=== PATIENT | male | born 1950 | race Hispanic/Latino ===

== ENCOUNTER 2017-01-17 10:04 | Emergency (ER) | payer MEDICAID ==
[2017-01-17 10:30] VITALS: BP 123/71
[2017-01-17] MEDS ORDERED: XYLOCAINE 1% 20 mL INFILTRATI ONE (12:20)
--- NOTE | 2017-01-17 12:37 | Emergency Department Report ---
Abscess Boil HPI - HPI Chief Complaint: Skin/Abscess/Foreign Body Stated Complaint: DIABETIC/LT HAND BUMP Time Seen by Provider: 01/17/17 11:35 Duration: >1 Week Location: Other (behind left hand) Severity: Moderate History: Yes Pain, No Fever, No Purulent Drainage, No Numbness, No Foreign Body , No Previous History, No Insect Bite HPI: Patient is a 66-year-old male who presents to ED with complains of a bump to the back of the left hand which began about 3 weeks ago. Patient reports that the area is a little bit tender. Denies any erythema, drainage. States unsure what caused the bump. Home Medications: Previous Rx's Medication Instructions Recorded Last Taken Type Sulfamethoxazole/Trimethoprim 1 each PO BID #20 tablet 01/17/17 Unknown Rx [Bactrim DS TAB] Allergies/Adverse Reactions: Allergies Allergy/AdvReac Type Severity Reaction Status Date / Time No Known Allergies Allergy Verified 01/17/17 10:31 ED Review of Systems ROS: Stated complaint: DIABETIC/LT HAND BUMP Other details as noted in HPI Constitutional: denies: chills, fever Eyes: denies: eye pain, eye discharge, vision change Respiratory: denies: cough, shortness of breath, wheezing Cardiovascular: denies: chest pain, palpitations Musculoskeletal: denies: back pain, joint swelling, arthralgia Skin: as per HPI, other (bump to the back of the left hand.). denies: rash, lesions Neurological: denies: headache, weakness, paresthesias Psychiatric: denies: anxiety, depression ED Past Medical Hx - Past Medical History Previous Medical History?: Yes Hx Heart Attack/AMI: Yes Hx Diabetes: Yes Hx Kidney Stones: Yes - Surgical History Past Surgical History?: Yes Additional Surgical History: stents - Social History Smoking Status: Current Every Day Smoker Substance Use Type: None - Medications Home Medications: Home Medications Medication Instructions Recorded Confirmed Last Taken Type Sulfamethoxazole/Trimethoprim 1 each PO BID #20 tablet 01/17/17 Unknown Rx [Bactrim DS TAB] ED Abscess Boil Physical Exam - Exam General: Vital signs noted. No distress. Alert and acting appropriately. Size: 2 cm Exam: Yes Tenderness, Yes Normal Neurologic Exam, Yes Normal Circulation, No Fluctuance, No Surrounding Cellulites/Erythema, No Lymphangitis, No Crepitation , No Heart Murmur Exam: Patient has about 2 cm in diameter lump to the dorsal aspect of the left hand. No erythema or drainage noted. I & D Note - I & D Note I & D Note: Lidocaine 1% was injected of about 3 mls to the dorsal aspect of the left hand. Beta Betadine scrub was applied. Small 0.5 cm incision was made. No pustular drainage noted. Scant amount of bloody drainage noted. Wound cleaned with Betadine and wound dressing was applied. ED Course Vital Signs 01/17/17 10:28 Temperature 97.7 F Pulse Rate 60 Respiratory 16 Rate Blood Pressure 123/71 O2 Sat by Pulse 96 Oximetry Critical care attestation.: If time is entered above; I have spent that time in minutes in the direct care of this critically ill patient, excluding procedure time. ED Medical Decision Making - Medical Decision Making Patient is resting comfortably in the ED room. I and D was attempted although no pustular drainage was noted. Scant bloody discharge was noted. Advised patient to follow up with novelty printing machine operator in 2-3 days to have a biopsy on the lesion. May return to ED for worsening symptoms. Wound dressing applied. - Differential Diagnosis abscess, cellulitis, skin lesion, skin infection, insect bite. ED Disposition Clinical Impression: Abscess, Cyst in hand Disposition: DC-01 TO HOME OR SELFCARE Is pt being admited?: No Does the pt Need Aspirin: No Condition: Stable Instructions: Skin Cryosurgery (ED), Abscess (ED), Acute Wound Care (ED), Incision and Drainage (ED) Prescriptions: Sulfamethoxazole/Trimethoprim [Bactrim DS TAB] 1 each PO BID #20 tablet Referrals: JAY HA MD [Staff Physician] - 3-5 Days Time of Disposition: 12:39
== END 2017-01-17 13:39 | disposition home or self-care (01) ==
LOC: ED 10:04
DX: L02.512 Cutaneous abscess of left hand (principal); E11.9 Type 2 diabetes mellitus without complications; I25.2 Old myocardial infarction; F17.200 Nicotine dependence, unspecified, uncomplicated